=== PATIENT | male | born 1985 | race Caucasian/White ===

== ENCOUNTER 2020-07-27 17:24 | Observation (INO) | payer OTHER ==
[~2020-07-27] VITALS: Ht 180.3 cm; Wt 82.0 kg
[~2020-07-27 17:24] MED LIST: MORPHINE SULFATE 4 MG/ML VIAL. IV PRN
[2020-07-27] MEDS ORDERED: BUPIVACAINE-EPI 0.5% 30 ML VIAL KIT. ONE (18:37)
[2020-07-27] MEDS ORDERED: PROPOFOL 10 MG/ML (20ML) VIAL. IV ONE (18:37)
[2020-07-27] MEDS ORDERED: fentaNYL PF VIAL 100 MCG/2 ML VIAL ONE ×2 (18:37→20:52)
[2020-07-27] MEDS ORDERED: DEXAMETHASONE SOD PHOS 4 MG/ML VIAL ONE (18:37)
[2020-07-27] MEDS ORDERED: ROCURONIUM 50 MG/5 ML VIAL. ONE (18:37)
[2020-07-27] MEDS ORDERED: LIDOCAINE 2% PF 5 ML VIAL. ONE (18:37)
[2020-07-27] MEDS ORDERED: MIDAZOLAM HCL/PF 2 MG/2 ML VIAL. ONE (18:37)
[2020-07-27] MEDS ORDERED: ONDANSETRON PF 4 MG/2 ML VIAL. ONE (18:37)
--- NOTE | 2020-07-27 19:27 | PDOC2 ---
CONSULT Date of Consult Date of Consult DATE: 07/27/20 TIME: 19:22 Reason for Consult Reason for Consult: appendicitis Referring Physician Referring Physician: Dr. Bran Identification/Chief Complaint Chief Complaint RLQ abd pain Source Source: Chart review, Patient History of Present Illness Reason for Visit: 34 yo M with 4 day history of abd pain localizing RLQ, associated F/C and constipation. Not resolved with exercise or laxatives. Prompted visiting primary today, moving to [facility] ER with diagnosis of appendicitis. Pt seen in ER and notes pain is mild increased. Past Medical History Cardiovascular: No pertinent hx Past Surgical History Past Surgical History: No pertinent history Family History Family History: No Significant Social History No Current Medications Current Medications Current Medications Propofol (Diprivan) 200 mg STK-MED ONCE IV ; Start 07/27/20 at 18:37; Stop 07/27/20 at 18:37; Status DC Dexamethasone Sodium Phosphate (Decadron) 4 mg STK-MED ONCE .ROUTE ; Start 07/27/20 at 18:37; Stop 07/27/20 at 18:37; Status DC Lidocaine HCl (Lidocaine Pf 2% Vial) 5 ml STK-MED ONCE .ROUTE ; Start 07/27/20 at 18:37; Stop 07/27/20 at 18:37; Status DC Ondansetron HCl (Zofran) 4 mg STK-MED ONCE .ROUTE ; Start 07/27/20 at 18:37; Stop 07/27/20 at 18:37; Status DC Rocuronium [place] (Zemuron) 50 mg STK-MED ONCE .ROUTE ; Start 07/27/20 at 18:37; Stop 07/27/20 at 18:37; Status DC Fentanyl Citrate (Fentanyl 2ml Vial) 100 mcg STK-MED ONCE .ROUTE ; Start 07/27/20 at 18:37; Stop 07/27/20 at 18:37; Status DC Bupivacaine HCl/ Epinephrine Bitart (Sensorcain-Epi 0.5% Kit) 30 ml STK-MED ONCE .ROUTE ; Start 07/27/20 at 18:37; Stop 07/27/20 at 18:37; Status DC Midazolam HCl (Versed) 2 mg STK-MED ONCE .ROUTE ; Start 07/27/20 at 18:37; Stop 07/27/20 at 18:37; Status DC Cefoxitin Sodium (Mefoxin) 2 gm ONCE ONCE IVP ; Start 07/27/20 at 19:30; Stop 07/27/20 at 19:31 Allergies Allergies: Coded Allergies: No Known Drug Allergies (Unverified , 07/27/20) ROS Gastrointestinal: Yes Abdominal Pain, Yes Constipation Physical Exam General: Alert, Oriented X3, Cooperative, mild distress HEENT: Atraumatic Lungs: Normal air movement Abdomen: Soft, Other (TTP RLQ with peritoneal sign) Extremities: No clubbing, No cyanosis Skin: No rashes, No breakdown Neuro: Normal speech, Sensation intact Psych/Mental Status: Mental status NL, Mood NL Labs Labs WBG normal at [facility] Images Images CT at [facility] c/w appendicitis Assessment/Plan Assessment/Plan Appendicitis D/w pt and pt's SO R/R/B/A of laparoscopic versus open appendectomy. Risks, including, but not limited to: bleeding, infection, damage to surrounding structures, risk of anesthesia, risk of open. They appear to understand, their questions are answered and they elect to proceed. Thanks for consult! HELENA SAEED MD Jul 27, 2020 19:27
[2020-07-27] MEDS ORDERED: cefOXitin SODIUM IV Push 2 GM VIAL. IVP ONE (19:30)
--- NOTE | 2020-07-27 19:38 | PDOC1 ---
History and Physical Date of Service: DOS: DATE: 07/27/20 TIME: 19:37 Chief Complaint: Chief Complain: Acute abdominal pain History of Present Illness: HPI: Patient is a 34-year-old male with 4-day history of right lower quadrant pain 10 out of 10 nonradiating. There is associated fever and chills and constipation. There are no alleviating or exacerbating factors. Patient was transferred from [facility] with diagnosis of appendicitis seen on imaging. Past Medical/Surgical History: PMH/PSH: No past medical or surgical history Allergies: Allergies: Coded Allergies: No Known Drug Allergies (Unverified , 07/27/20) Family History: Family History: Reviewed with no relevant findings Social History: Social History: Denies alcohol, drug or tobacco abuse Current Medications: Current Medications Current Medications Propofol (Diprivan) 200 mg STK-MED ONCE IV ; Start 07/27/20 at 18:37; Stop 07/27/20 at 18:37; Status DC Dexamethasone Sodium Phosphate (Decadron) 4 mg STK-MED ONCE .ROUTE ; Start 07/27/20 at 18:37; Stop 07/27/20 at 18:37; Status DC Lidocaine HCl (Lidocaine Pf 2% Vial) 5 ml STK-MED ONCE .ROUTE ; Start 07/27/20 at 18:37; Stop 07/27/20 at 18:37; Status DC Ondansetron HCl (Zofran) 4 mg STK-MED ONCE .ROUTE ; Start 07/27/20 at 18:37; Stop 07/27/20 at 18:37; Status DC Rocuronium [place] (Zemuron) 50 mg STK-MED ONCE .ROUTE ; Start 07/27/20 at 18:37; Stop 07/27/20 at 18:37; Status DC Fentanyl Citrate (Fentanyl 2ml Vial) 100 mcg STK-MED ONCE .ROUTE ; Start 07/27/20 at 18:37; Stop 07/27/20 at 18:37; Status DC Bupivacaine HCl/ Epinephrine Bitart (Sensorcain-Epi 0.5% Kit) 30 ml STK-MED ONCE .ROUTE ; Start 07/27/20 at 18:37; Stop 07/27/20 at 18:37; Status DC Midazolam HCl (Versed) 2 mg STK-MED ONCE .ROUTE ; Start 07/27/20 at 18:37; Stop 07/27/20 at 18:37; Status DC Cefoxitin Sodium (Mefoxin) 2 gm ONCE ONCE IVP ; Start 07/27/20 at 19:30; Stop 07/27/20 at 19:31; Status DC ROS: Review of Systems Review of System REVIEW OF SYSTEMS: GENERAL: Denies weakness SKIN: No bruising, hair changes or rashes. EYES: No blurred, double or loss of vision. NOSE AND THROAT: No history of nosebleeds, hoarseness or sore throat. HEART: No history of palpitations, chest pain or shortness of breath on exertion. LUNGS: Denies cough, hemoptysis, wheezing or shortness of breath. GASTROINTESTINAL: Denies changes in appetite, nausea, vomiting, diarrhea or constipation. GENITOURINARY: No history of frequency, urgency, hesitancy or nocturia. NEUROLOGIC: Denies history of numbness, tingling, or tremor. PSYCHIATRIC: No history of panic, anxiety or depression. ENDOCRINE: No history of heat or cold intolerance, polyuria or polydipsia. EXTREMITIES: Denies joint pain, pain on walking or stiffness. Physical Exam: Physcial Exam: GEN: No apparent distress. Alert and oriented HEENT: Normal cephalic, atraumatic, external auditory canals are patent EYES: Extraocular muscles are intact, pupil are equally round and reactive to light and accommodation MUSCULOSKELETAL: Well developed , well nourished, good range of motion ENDOCRINE: No thyromegaly was palpated LYMPHATICS: No cervical chain or axillary nodes were noted HEMATOPOIETIC: No bruising NECK: Supple, no JVD, no thyromegaly was noted LUNGS: Clear to auscultation in all lung ceja without rhonchi or wheezing HEART: RRR, S!, S2 present. Peripheral pulses intact, no obvious murmurs noted ABDOMEN: Soft, nontender. Positive bowel sounds, no organomegaly, normal bowel sounds EXTREMITIES: Without clubbing, cyanosis, or edema. Pedal pulses intact. Negative Homans sign NEUROLOGIC: Normal speech and tone. A&O x 3, moves all extremities, no obvious focal deficits PSYCHIATRIC: Normal affect, normal mood. Stable SKIN: No ulcerations or rashes, good skin turgor, no jaundice VASCULAR: Good capillary refill, neurovascular bundle appears to be intact Labs: Labs: Labs and chart reviewed Images: Images Images and the chart reviewed Assessment/Plan Assessment/Plan Acute abdominal pain due to appendicitis Admit to medicine for further management General surgery consult Lovenox for DVT prophylaxis ADA diet Full code Discussed with RN and SW Disposition on-call to the OR for lap appendectomy Surrogate decision maker is Kavitha catching Justifications for Admission Other Justification ASCENCION CHICAS MD Jul 27, 2020 19:37
[2020-07-27] MEDS ORDERED: GLYCOPYRROLATE 1 MG/5 ML VIAL. ONE (19:40)
[2020-07-27] MEDS ORDERED: NEOSTIGMINE METHYLSULFATE 5 MG/5 ML SYRINGE. ONE (19:55)
[2020-07-27] MEDS ORDERED: KETOROLAC 30 MG/ML VIAL. ONE ×2 (19:56→19:57)
[2020-07-27] MEDS ORDERED: DOCUSATE SODIUM 100 MG CAPSULE. PO PRN (20:00)
[2020-07-27] MEDS ORDERED: SENNOSIDES 8.6 MG TABLET PO PRN (20:00)
[2020-07-27] MEDS ORDERED: ACETAMINOPHEN 325 MG TABLET. PO PRN (20:00)
[2020-07-27] MEDS ORDERED: oxyCODONE/APAP 5/325 1 TAB TABLET PO PRN ×2 (20:00)
[2020-07-27] MEDS ORDERED: MORPHINE SULFATE 2 MG/ML VIAL. IV PRN ×2 (20:00→20:15)
[2020-07-27] MEDS ORDERED: ONDANSETRON PF 4 MG/2 ML VIAL. IVP PRN ×2 (20:00→20:15)
[2020-07-27] MEDS ORDERED: DEXTROSE 50% 25 GM / 50ML DISP.SYRIN. IV PRN (20:00)
[2020-07-27] MEDS ORDERED: SEVOFLURANE 61 TO 120 MINUTES. IH ONE (20:01)
--- NOTE | 2020-07-27 20:13 | PDOC4 ---
OPERATIVE NOTE Date: Date: Jul 27, 2020 Pre-Op Diagnosis: Appendicitis Post-Op Diagnosis: same Procedure Performed: laparoscopic appendectomy Surgeon: Deepak Saeed Anesthesia Type: GETA plus local Blood Loss: 50 Specimans Obtained: appendix Findings: indurated, erythema of appendix; normal stomach, viscera, gallbladder, liver, no hernia Complications: none Operative Note: After obtaining informed consent, patient was taken to OR, induced under GETA and prepped in the usual fashion. 5 mm ports placed LLQ and suprapubic, 12 port placed umbilical, all under laparoscopic guidance. Abdominal cavity was explor ed and noted as above. Appendix was grasped. Defect created in mesoappendix. General load ANASTACIA taken across base of appendix. Vascular load was used on mesoappendix. Additional hemostasis obtained on mesoappendix using clips. Appendix was placed in bag, delivered and sent to pathology. Copious irrigation. No evidence of bleeding or other pathology. Ports removed without bleeding. Fascia repaired with 0 vicryl. Skin repaired with 4 0 monocryl. Dressing placed. Patient tolerated procedure well and sent to PACU in stable condition. All counts correct. Wound class is 3. HELENA SAEED MD Jul 27, 2020 20:13
[2020-07-27] MEDS ORDERED: HYDROcodone/APAP 5/325MG 1 TAB TABLET PO PRN (20:15)
[2020-07-27] MEDS ORDERED: IV NORMAL SALINE 1000ML BAG 1,000 ML IV SCH (20:15)
[2020-07-27] MEDS ORDERED: 0.9 % SODIUM CHLORIDE 10 ML DISP.SYRIN. IV PRN (20:15)
[2020-07-27] MEDS ORDERED: NALOXONE 0.4 MG/ML VIAL. IV PRN (20:15)
[2020-07-27] MEDS ORDERED: MORPHINE SULFATE 2 MG/ML VIAL. IVP PRN (21:00)
[2020-07-27] MEDS ORDERED: PROCHLORPERAZINE 10 MG/2 ML VIAL. IVP PRN (21:00)
[2020-07-27] MEDS ORDERED: HYDROmorphone 2 MG/ML VIAL IVP PRN (21:00)
[2020-07-27] MEDS: DOCUSATE SODIUM 100 MG CAPSULE. PO SCH (21:00)
[2020-07-27] MEDS ORDERED: IV RINGERS,LACTATED 1000ML 1,000 ML IV SCH (21:00)
[2020-07-27] MEDS ORDERED: fentaNYL PF VIAL 100 MCG/2 ML VIAL IVP PRN (21:00)
[2020-07-27] MEDS: fentaNYL PF VIAL 100 MCG/2 ML VIAL IVP PRN ×2 (21:03→22:00)
[2020-07-27] MEDS: IV RINGERS,LACTATED 1000ML 1,000 ML IV SCH (22:00)
[2020-07-27 22:30] VITALS: BP 150/83
[2020-07-27 22:45] VITALS: BP 146/83
[2020-07-27 23:00] VITALS: BP 139/74
[2020-07-27 23:15] VITALS: BP 135/73
[2020-07-27 23:45] VITALS: BP 130/73
[2020-07-28] VITALS (7 sets, daily range): BP systolic 105–144; BP diastolic 63–92
[2020-07-28 04:47] LABS: BASO % 0 % (0-3); EOS % 0 % (0-3); HEMOGLOBIN 13.8 g/dL (13.0-17.5); LYMPH # 0.6 x10^3/uL (1.0-4.8); LYMPH % 11 % (24-48); MEAN CORPUSCULAR HEMOGLOBIN 25 pg (25-35); MEAN CORPUSCULAR HGB CONC 33 g/dL (31-37); MEAN CORPUSCULAR VOLUME 75 fL (79-100); MONO # 0.1 x10^3/uL (0.0-1.1); MONO % 2 % (0-9); NEUT # 4.6 x10^3/uL (1.8-7.7); NEUT % 87 % (31-73); PLATELET COUNT 161 x10^3/uL (140-400); RED BLOOD COUNT 5.62 x10^6/uL (4.30-5.70); WHITE BLOOD COUNT 5.3 x10^3/uL (4.0-11.0)
[2020-07-28 04:59] LABS: CALCIUM 8.7 mg/dL (8.5-10.1); CREATININE 1.1 mg/dL (0.7-1.3); GFR 76.6; MAGNESIUM 1.9 mg/dL (1.8-2.4); PHOSPHORUS 3.5 mg/dL (2.6-4.7); POTASSIUM 4.4 mmol/L (3.5-5.1)
[2020-07-28 05:18] LABS: % LYMPHS 11 % (24-48); % MONOS 3 % (0-10); % SEGS 86 % (35-66); PLT ESTIMATE ADEQUATE (ADEQUATE)
[2020-07-28] MEDS: IV RINGERS,LACTATED 1000ML 1,000 ML IV SCH (05:44)
[2020-07-28] MEDS: PIPERACILLIN/TAZOBACTAM 3.375 GM in IV NORMAL SALINE 50ML 50 ML IV SCH ×3 (05:44→12:00)
[2020-07-28] MEDS: IV NORMAL SALINE 1000ML BAG 1,000 ML IV SCH ×2 (06:00)
--- NOTE | 2020-07-28 07:21 | NUR ---
Slept well all noc. Dressings D/I. VSS.
--- NOTE | 2020-07-28 08:30 | DISCH ---
DISCHARGE INSTRUCTIONS Condition on Discharge Condition on Discharge: Stable Activity After Discharge Activity Instructions for Disc: Activity as tolerated Lifting Instructions after Dis: Do not lift >10 pounds Exercise Instruction after Dis: Walk 15 min, 3 x per day Driving Instructions after Dis: Do not drive today Weight Bearing Status after Di: Full weight bearing Follow-Up Follow up with: PCP within 2 weeks of discharge Follow Up With: General surgery within 2 weeks for post-op wound check ASCENCION CHICAS MD Jul 28, 2020 08:30
[2020-07-28] MEDS ORDERED: ENOXAPARIN 40 MG/0.4 ML SYRINGE. SQ SCH (09:00)
[2020-07-28] MEDS: DOCUSATE SODIUM 100 MG CAPSULE. PO SCH (09:08)
--- NOTE | 2020-07-28 15:30 | NUR ---
Pt DC home in stable condition with belongings accompanied by . DC instructions and medications reviewed. Pt denies having questions. SL removed from R AC, cath intact per KARIN Gu.
--- NOTE | 2020-07-31 12:01 | PDOC3 ---
[facility]-Discharge Summary Date of Admission: Date of Admission: Jul 27, 2020 Date of Discharge: Date of Discharge: Jul 28, 2020 Discharge Diagnosis: Discharge Diagnosis: Acute appendicitis Hospital Course: Hospital Course: 34-year-old male with 4-day history of right lower quadrant pain 10 out of 10 nonradiating. There is associated fever and chills and constipation. There are no alleviating or exacerbating factors. Patient was transferred from [facility] with diagnosis of appendicitis seen on imaging. Taken to OR for laparoscopic appendectomy. Tolerated procedure well without any postoperative complications. Ambulating, pain was well controlled, and tolerating diet. The rest of the hospital course was uneventful. Disposition: Disposition/Orders: D/C to Home Activity: Activity: Resume previous activity Diet: Diet: Thickened Liquids, Regular Medications: Home Meds No Active Prescriptions or Reported Meds No Active Prescriptions or Reported Meds Total Time: Total Time: Total time spent was 25 minutes in preparing scripts, discharge planning with SW and RN, and preparing this discharge summary. Patient seen and examined on day of discharge. Justicifation of Admission Dx: Justifications for Admission: Justification of Admission Dx: Yes Sepsis: Infection ASCENCION CHICAS MD Jul 31, 2020 12:01
--- NOTE | 2020-08-03 09:08 | PATHOLOGY ---
[facility] Accession Number: [id number] . 01 Material submitted: . appendix - APPENDIX . 01 Clinical history: . PRE-OPERATIVE DIAGNOSIS - ACUTE APPENDICITIS OPERATIVE PROCEDURE - LAP APPENDECTOMY APPENDICITIS . 02 Diagnosis: Appendix, laparoscopic appendectomy: - Acute appendicitis. - Fibrous obliteration of distal appendiceal lumen. (JPM:academic assistant; 08/02/2020) MBR 08/02/2020 1701 Local . 02 Comment: There is no evidence of rupture. (JPM:academic assistant; 08/02/2020) . 02 Electronically signed: . Tani Phelps MD, Pathologist NPI- [id number] . 01 Gross description: . Received in formalin labeled "Santiago Arevalo, appendix" is an appendix measuring 8.7 cm in length and 1.1 cm in diameter. There is an attached portion of mesoappendix measuring 4.5 x 1.3 x 0.8 cm. The proximal margin is closed with a staple line. The serosa is pink-rasheed and focally hemorrhagic with scant rasheed-white purulent exudate. The specimen is sectioned to reveal a luminal diameter ranging from 0.3-0.5 cm, and no fecaliths or perforations. Heater Worker sections are submitted in cassette A1, with the proximal margin inked black. ([facility]; 07/31/2020) SY/[facility] 07/31/2020 1116 Local . 02 Pathologist provided ICD-10: K35.80 . 02 CPT . [id number] Specimen Comment: A courtesy copy of this report has been sent to [phone] Specimen Comment: [id number] Specimen Comment: Report sent to / Performed at: 01 [facility] [address], [place], [place] [id number] MD Michael Schwab MD Phone: [phone] Performed at: [address] [facility] [address], [place] [id number] MD Tani Phelps MD Phone: [phone]
== END 2020-07-28 15:30 | disposition home or self-care (01) ==
LOC: 4 SOUTHEST 17:24 → INTOOBSV 17:24 → EDSEX 17:24
PROVIDERS: ADMIT Internal Medicine; ATTEND Internal Medicine
DX: K35.80 Unspecified acute appendicitis (principal); K59.00 Constipation, unspecified
CPT/HCPCS: 36415; 44970; 80048; 83735; 84100; 85007; 85025; 96365; 96366; 96372; A4314; A4930; A6219; G0378; G0379; J0694; J1100; J1650; J1885; J2250; J2543; J2704; J2710; J3010; J3490; J7030; J7120; J2405